=== PATIENT | female | born 1980 | race Caucasian/White ===

== ENCOUNTER → 2017-01-05 | Outpatient (CLI) | payer BC ==
--- NOTE | 2017-01-05 09:08 | US ---
EXAMINATION TYPE: US abdomen complete DATE OF EXAM: 01/05/2017 COMPARISON: NONE CLINICAL HISTORY: R10.11 RUQ PAIN. RUQ for 1 month, nausea EXAM MEASUREMENTS: Liver Length: N/A Gallbladder Wall: 0.2 cm CBD: 0.6 cm Spleen: 12.4 cm Right Kidney: 10.5 x 5.9 x 5.5 cm Left Kidney: 10.5 x 5.9 x 5.5 cm limited exam due to bowel habitus and gas Pancreas: very limited exam Liver: difficult to penetrate, unable to even see diaphragm for measurement Gallbladder: low level echoes and small mobile areas noted dependently when patient was rolled LPO Evidence for sonographic Elkins's sign: YES CBD: wnl Spleen: upper limits of normal for size Right Kidney: limited views Left Kidney: limited views Upper IVC: wnl Abd Aorta: limited views The liver is homogenous. The intrahepatic portion of the IVC and proximal abdominal aorta are within normal limits. There is no evidence of cholelithiasis. Common bile duct is unremarkable. The visu alized portions of the pancreas are homogenous. The spleen is unremarkable. Kidneys are symmetric a nd free of hydronephrosis. No renal lesions are seen. IMPRESSION: 1. Fatty liver versus diffuse hepatocellular disease. 2. Small gallstones and/or sludge.
== END | disposition home or self-care (01) ==
LOC: RADUSWWP 06:52
PROVIDERS: ATTEND Family Medicine
DX: K76.9 Liver disease, unspecified (principal); K82.9 Disease of gallbladder, unspecified; R10.11 Right upper quadrant pain
CPT/HCPCS: 76700

== ENCOUNTER → 2017-01-09 | Outpatient (CLI) | payer BC ==
--- NOTE | 2017-01-09 10:40 | US ---
EXAMINATION TYPE: US venous doppler duplex LE RT DATE OF EXAM: 01/09/2017 10:28 AM COMPARISON: NONE CLINICAL HISTORY: R60.0 LOCALIZED EDEMA. Pt states rt leg cramping, pt states previous DVT 2008, curr ently not on blood thinners SIDE PERFORMED: Right TECHNIQUE: The lower extremity deep venous system is examined utilizing real time linear array sonog raymundo with graded compression, doppler sonography and color-flow sonography. VESSELS IMAGED: External Iliac Vein (EIV) Common Femoral Vein Deep Femoral Vein Greater Saphenous Vein * Femoral Vein Popliteal Vein Small Saphenous Vein * Proximal Calf Veins (* superficial vessels) Right Leg: Negative for DVT Results called to Dr. Cline at time of exam IMPRESSION: 1. Right lower extremity negative for deep venous thrombosis by ultrasound.
== END | disposition home or self-care (01) ==
LOC: RADUSWWP 10:07
PROVIDERS: ATTEND Family Medicine
DX: R60.0 Localized edema (principal)